=== PATIENT | male | born 1970 | race Caucasian/White ===

== ENCOUNTER 2018-01-15 11:59 | Emergency (ER) | payer SELFPAY ==
[~2018-01-15] VITALS: Ht 177.8 cm; Wt 115.0 kg
[~2018-01-15 11:59] MED LIST: BUPR75TA PO; CARV3.12 PO; CLOP75TA PO; FURO1TAB60 PO; GLIM1TAB PO; ISOS60TA PO; LISI10TA3 PO; METF1000 PO; NEXI20CA PO; NITR1SUB3 SL; PROBCAP3
[2018-01-15 12:06] VITALS: BP 149/86; PULSE 69; RESP 18; TEMP 98.6; O2SAT 98
[2018-01-15] MEDS ORDERED: ATOR40TA16 PO (13:53)
[2018-01-15] MEDS ORDERED: BISO5TAB5 PO (13:53)
[2018-01-15] MEDS ORDERED: CARV6.252 PO (13:53)
[2018-01-15] MEDS ORDERED: CILO100T PO (13:53)
[2018-01-15] MEDS ORDERED: AMPICILLIN-SULBACTAM INJ 3 GM VIAL IM ONE (14:00)
[2018-01-15] MEDS ORDERED: predniSONE 20 MG TAB PO ONE (14:00)
--- NOTE | 2018-01-15 14:09 | PD ---
HPI Chief Complaint: Oral / Dental Pain or Problem Time Seen by Provider: 13:50 Travel History International Travel<30 days: No Contact w/Intl Traveler<30days: No Traveled to known affect area: No History of Present Illness HPI 47-year-old male presents emergency department status post dental pain and swelling after removal of the #19 tooth 4 days ago. Patient was previously treated with clindamycin 300 mg 3 times daily prior to extraction, and then 600 mg 3 times daily up until today. Patient continues to have pain and swelling to the area. He saw his dentist and was referred here to rule out worsening symptoms. Patient denies fever but has had low-grade chills. Patient denies difficulty swallowing or sore throat. Patient is allergic to nonsteroidals, aspirin, cefazolin, and Naprosyn. Pain is currently 7 out of 10. He has no other complaints. PFSH Past Medical History Hx Anticoagulant Therapy: Yes (PLAVIX) Cardiovascular Problems: Yes High Cholesterol: Yes Coronary Artery Disease: Yes Diabetes: Yes (METFORMIN) Patient Takes Glucophage: Yes Hypertension: Yes Past Surgical History Cardiac Surgery: Yes (OPEN HEART SUGERY) Social History Alcohol Use: No Tobacco Use: No Substance Use: No Allergies-Medications (Allergen,Severity, Reaction): Coded Allergies: NSAIDS (Non-Steroidal Anti-Inflamma (Verified Allergy, Severe, Anaphylaxis , 01/15/18) aspirin (Verified Allergy, Severe, hives, 01/15/18) naproxen (Verified Allergy, Severe, 01/15/18) cefazolin (Verified Allergy, Unknown, 01/15/18) Reported Meds & Prescriptions Reported Meds & Active Scripts Active Lasix (Furosemide) 40 Mg Tab 40 Mg PO DAILY Lisinopril 10 Mg Tab 10 Mg PO DAILY Metformin (Metformin HCl) 1,000 Mg Tab 1,000 Mg PO BIDPC With meals Clopidogrel (Clopidogrel Bisulfate) 75 Mg Tab 75 Mg PO DAILY Bupropion HCl 75 Mg Tab 75 Mg PO BID Nitroglycerin SL (Nitroglycerin) 0.4 Mg Subl 0.4 Mg SL DIRECTED PRN 1 TAB UNDER THE TONGUE PRN CHEST PAIN, MAY REPEAT EVERY 5 MIN FOR A TOTAL OF 3 DOSES. Reported Cilostazol 100 Mg Tab 100 Mg PO BID Atorvastatin (Atorvastatin Calcium) 40 Mg Tab 40 Mg PO HS Bisoprolol (Bisoprolol Fumarate) 5 Mg Tab 5 Mg PO DAILY Carvedilol 6.25 Mg Tab 6.25 Mg PO BID Probiotic & Acidophilus F (Probiotic Product) 1 Cap Cap Nexium (Esomeprazole DR) 20 Mg Capdr 20 Mg PO DAILY Review of Systems Except as stated in HPI: all other systems reviewed are Neg General / Constitutional: No: Fever Eyes: No: Visual changes HENT: Positive: Dental Difficulties, No: Headaches, Vertigo, Lightheadedness, Sore Throat, Rhinitis, Rhinorrhea, Congestion, Nosebleed, Neck Stiffness, Neck Pain, Masses, Gingival Bleeding, Ear Discharge, Earache Cardiovascular: No: Chest Pain or Discomfort Respiratory: No: Shortness of Breath Gastrointestinal: No: Abdominal Pain Genitourinary: No: Dysuria Musculoskeletal: No: Pain Skin: No Rash Neurologic: No: Weakness Psychiatric: No: Depression Endocrine: No: Polydipsia Hematologic/Lymphatic: No: Easy Bruising Physical Exam Narrative GENERAL: Patient appears in no obvious distress. SKIN: Warm and dry. Normal color. Normal turgor. No rash. No erythema. HEAD: Atraumatic. Normocephalic. EYES: Pupils equal and round. No scleral icterus. No injection or drainage. ENT: No nasal bleeding or discharge. Mucous membranes pink and moist. Patient has mild to moderate swelling over the left lower jaw. TMs are clear bilaterally. Tongue is normal. Uvula is midline. Pharynx is unremarkable. No significant lymphadenopathy is noted. NECK: Trachea midline. Neck is supple. There is no obvious sign of Gage's angina. There is no significant cervical lymphadenopathy. CARDIOVASCULAR: Regular rate and rhythm. RESPIRATORY: No accessory muscle use. Clear to auscultation. Breath sounds equal bilaterally. GASTROINTESTINAL: Abdomen soft, non-tender, nondistended. Hepatic and splenic margins not palpable. MUSCULOSKELETAL: Extremities without clubbing, cyanosis, or edema. No obvious deformities. NEUROLOGICAL: Awake and alert. No obvious cranial nerve deficits. Motor grossly within normal limits. Five out of 5 muscle strength in the arms and legs. Normal speech. PSYCHIATRIC: Appropriate mood and affect; insight and judgment normal. Data Data Last Documented VS Vital Signs Date Time Temp Pulse Resp B/P (MAP) Pulse Ox O2 Delivery O2 Flow Rate FiO2 01/15/18 12:06 98.6 69 18 149/86 (107) 98 Orders Orders Ampicillin-Sulbactam Inj (Unasyn Inj) (01/15/18 14:00) Prednisone (Deltasone) (01/15/18 14:00) MDM Medical Decision Making Medical Screen Exam Complete: Yes Emergency Medical Condition: Yes Differential Diagnosis Dental pain. Dental abscess. Early Gage's angina. Narrative Course Patient appears medically stable at this time. CT of the neck is not felt warranted at this time based on my history and physical. Patient is to discontinue his clindamycin. Patient is given 3 g Unasyn IM. Patient is given 40 mg prednisone p.o. Patient will be continued on prednisone 20 mg daily for 5 days. Patient is continued on Augmentin 875 twice daily 10 days. Patient follow-up closely with his dentist. Patient should return here immediately if he has worsening neck discomfort or difficulty swallowing. Diagnosis Primary Impression: Dental abscess Referrals: Dentist Patient Instructions: Dental Abscess (ED), General Instructions Additional Instructions: CT of the neck is not felt warranted at this time based on my history and physical. Patient is to discontinue his clindamycin. Patient is given 3 g Unasyn IM. Patient is given 40 mg prednisone p.o. Patient will be continued on prednisone 20 mg daily for 5 days. Patient is continued on Augmentin 875 twice daily 10 days. Patient follow-up closely with his dentist. Patient should return here immediately if he has worsening neck discomfort or difficulty swallowing. Med/Other Pt SpecificInfo: Prescription(s) given Disposition: 01 DISCHARGE HOME Condition: Stable Elier Barbour Jan 15, 2018 14:09
[2018-01-15] MEDS ORDERED: AUGM500T7 PO (14:10)
[2018-01-15] MEDS ORDERED: PRED20 PO (14:10)
== END 2018-01-15 15:19 | disposition home or self-care (01) ==
LOC: NEPD 11:59
DX: K04.7 Periapical abscess without sinus (principal); E11.9 Type 2 diabetes mellitus without complications; E78.00 Pure hypercholesterolemia, unspecified; I10 Essential (primary) hypertension; I25.10 Atherosclerotic heart disease of native coronary artery without angina pectoris; Z79.02 Long term (current) use of antithrombotics/antiplatelets; Z79.84 Long term (current) use of oral hypoglycemic drugs
CPT/HCPCS: 96372; 99283; J0295; J7512